=== PATIENT | female | born 2000 | race African-American/Black ===

== ENCOUNTER 2025-01-02 21:37 | Emergency (ER) | payer BC ==
[~2025-01-02] VITALS: Ht 167.6 cm; Wt 56.9 kg
[2025-01-02 22:24] VITALS: BP 116/65; PULSE 94; RESP 15; TEMP 96.8; O2SAT 98
--- NOTE | 2025-01-02 23:04 | Physician Documentation ---
History of Present Illness ~ Chief Complaint: Cold, cough & congestion Stated Complaint: VOMMITING HPI This is a 24-year-old female who presents with concern for blood tinged emesis after several episodes of vomiting earlier today, patient reports that she has been experiencing nausea and vomiting associated with her menstrual cycle, patient reports that she is currently on her menstrual cycle. Patient reports suprapubic cramping consistent with her typical menstrual cramps. Patient reports no other acute symptoms or concerns. Medication Reconciliation Allergies: Coded Allergies: No Known Allergies (Unverified , 01/02/25) Past Medical History Past Medical History: No Pertinent History Review of Systems ROS As stated above in the HPI, otherwise all systems are reviewed and negative. Physical Exam Vital Signs: Temperature: 96.8, Source: Temporal, Heart Rate: 94, Respiratory Rate: 15, BP: 116/65, Pulse Oximetry: 98, Weight: 56.850 Physical Exam VITALS: Reviewed and as above. GENERAL: Alert, nontoxic appearing, no apparent distress. RESPIRATORY: No increased work of breathing, no respiratory distress, speaking in full clear sentences Progress Results/Orders Results/Orders Vital Signs 01/02/25 22:24 Temp 96.8 Pulse 94 Resp 15 B/P (MAP) 116/65 Pulse Ox 98 Medical Decision Making Findings MSE performed in triage and patient returned to ED lobby by nursing staff to await available ED room. Patient appears to have eloped from lobby. Differential Dx:Considerations: Include: Other (GI bleed, bowel obstruction, bulimia, Boerhaave syndrome, Viviana-Olsen tear) Departure Disposition: LEFT AWOL/ELOPED Impression: Primary Impression: Vomiting Qualified Codes: R11.2 - Nausea with vomiting, unspecified Condition: Stable Referrals: NO PRIMARY CARE PROVIDER (PCP) Signature Scribe Signature: No scribe Attestation: The note accurately reflects work and decisions made by me.JIGAR Beaver 01/06/25 21:17 TOR MASSEY Jan 02, 2025 23:04
== END 2025-01-03 00:09 | disposition left against medical advice (07) ==
LOC: ER 21:38
DX: R11.2 Nausea with vomiting, unspecified (principal)
CPT/HCPCS: 99282

== ENCOUNTER 2025-02-11 21:13 | Emergency (ER) | payer BC ==
[~2025-02-11] VITALS: Ht 165.1 cm; Wt 73.7 kg
--- NOTE | 2025-02-11 22:10 | Physician Documentation ---
History of Present Illness ~ Chief Complaint: See Chief Complaint Stated Complaint: IUD CAME OUT Time Seen by MD: 21:48 HPI 84-year-old female presents to the ED with a complaint that she believes that her copper IUD was flushed down the toilet this evening. She states she has had vaginal bleeding since it was placed three days ago. Reports cramping. Additionally she says she has been taking prescribed control prior to IUD placement. Day of Onset: Feb 11, 2025 Medication Reconciliation Allergies: Coded Allergies: No Known Allergies (Unverified , 01/02/25) Past Medical History Past Medical History: No Pertinent History Physical Exam Vital Signs: Temperature: 97.9, Heart Rate: 71, Respiratory Rate: 16, BP: 112/68, Pulse Oximetry: 98, Weight: 73.700 Oxygen Flow Rate: 0 Physical Exam General: Alert, no apparent distress. Neck: Full range of motion. Respiratory: Lungs clear, no respiratory distress. Cardiovascular: Regular rate and rhythm, no murmurs. Gastrointestinal: Soft, nontender, nondistended. Bowels sounds present. Neurologic: Oriented x4. Psychiatric: Normal mood and affect. Skin: Normal color, warm and dry. No edema, no ecchymosis. Progress Results/Orders Results/Orders Orders - JESUS ANDRADE NP Ultrasound Pelvis W/Orwo Dplx (02/11/25 22:06) Completed Orders - JESUS ANDRADE NP Ultrasound Pelvis W/Orwo Dplx (02/11/25 22:06) Vital Signs 02/11/25 21:28 Temp 97.9 Pulse 71 Resp 16 B/P (MAP) 112/68 Pulse Ox 98 O2 Flow Rate 0 Medical Decision Making Findings US indicated that the IUD was in place and no abnormal findings were evident. rukhsana advised ot follow up with [facility] for further eval of hre iud Departure Disposition: 01 HOME / SELF CARE / HOMELESS Impression: Primary Impression: IUD check up Additional Impression: IUD (intrauterine device) in place Condition: Improved Discharge Instructions: Intrauterine Device Information Referrals: NO PRIMARY CARE PROVIDER (PCP) Signature Scribe Signature: v Attestation: Scribed for Jesus Andrade Grit Removal Operator by Jesus Schultz NP . 02/11/25 23:11 JESUS ANDRADE NP Feb 11, 2025 22:10
--- NOTE | 2025-02-11 23:40 | RADIOLOGY REPORT ---
INDICATION: misplaced iud TECHNIQUE: Multiple real-time grayscale transabdominal sonographic images along with color and duplex Doppler of the uterus and ovaries were obtained. COMPARISON: None FINDINGS: The uterus measures 6.7 x 3.6 x 5.5 cm. The endometrial stripe measures 4 mm. An intrauterine device is noted in the region of the endometrial canal. The right ovary was not visualized. The left ovary measures 3.4 x 1.0 x 2.0 cm and demonstrates normal flow. IMPRESSION: 1. Intrauterine device is present.
[2025-02-12 00:16] VITALS: BP 111/60; PULSE 70; RESP 18; TEMP 98.6; O2SAT 99
== END 2025-02-12 00:18 | disposition home or self-care (01) ==
LOC: ER 21:14
DX: Z30.431 Encounter for routine checking of intrauterine contraceptive device (principal); Z79.3 Long term (current) use of hormonal contraceptives
CPT/HCPCS: 76856; 93976; 99284